=== PATIENT | male | born 1945 | race Caucasian/White ===

== ENCOUNTER 2016-11-26 05:07 | Day surgery (SDC) | payer BC ==
[~2016-11-26 05:07] MED LIST: CRESTOR5 MG PO; LIOR10 PO; LIPITOR20 PO; NORCO1 TA2 PO; P5 PO
[2016-12-03] MEDS ORDERED: NAP500 PO (12:13)
[2017-03-03] MEDS ORDERED: ELIQUIS 5 MG TAB5 MG PO (17:19)
[2017-03-03] MEDS ORDERED: LIPITOR20 PO (17:19)
== END 2016-11-26 09:26 | disposition home or self-care (01) ==
LOC: SDC 05:07
PROVIDERS: Orthopaedic Surgery
PROC: 3E0S33Z Introduction of Anti-inflammatory into Epidural Space, Percutaneous Approach (ICD-10-PCS; principal; 2016-11-26 07:45)
DX: M54.16 Radiculopathy, lumbar region (principal); Z88.0 Allergy status to penicillin; Z98.890 Other specified postprocedural states
CPT/HCPCS: J1040; J2250; J3010; Q9967

== ENCOUNTER 2016-12-10 04:49 | Day surgery (SDC) | payer BC ==
[~2016-12-10 04:49] MED LIST changes: +NAP500 PO
[2017-03-03] MEDS ORDERED: ELIQUIS 5 MG TAB5 MG PO (17:19)
[2017-03-03] MEDS ORDERED: LIPITOR20 PO (17:19)
== END 2016-12-10 08:31 | disposition home or self-care (01) ==
LOC: SDC 04:49
PROVIDERS: Orthopaedic Surgery
PROC: 3E0R3BZ Introduction of Anesthetic Agent into Spinal Canal, Percutaneous Approach (ICD-10-PCS; 2016-12-10)
PROC: B01BYZZ Fluoroscopy of Spinal Cord using Other Contrast (ICD-10-PCS; 2016-12-10)
PROC: 3E0R33Z Introduction of Anti-inflammatory into Spinal Canal, Percutaneous Approach (ICD-10-PCS; principal; 2016-12-10 07:00)
DX: M54.16 Radiculopathy, lumbar region (principal); M48.06 Spinal stenosis, lumbar region; Z98.890 Other specified postprocedural states
CPT/HCPCS: J1040; J2250; J3010; Q9967